=== PATIENT | female | born 1955 | race Two or more races ===

== ENCOUNTER 2018-12-06 17:20 | Emergency (ER) | payer OTHER ==
[~2018-12-06] VITALS: Ht 147.3 cm; Wt 76.7 kg
[2018-12-06 17:28] VITALS: Ht 147.3 cm; Wt 76.7 kg
[2018-12-06 20:59] LABS: BASOPHIL % 0.3 % (0-2)
[2018-12-06 21:07] LABS: CARBON DIOXIDE 28.3 mmol/L (21-32); CHLORIDE SERUM 105 mmol/L (98-107); CREATININE SERUM 0.8 mg/dL (0.6-1.0); GFR1 > 60 mL/min; GLUCOSE SERUM 112 mg/dL (74-106); PLATELET COUNT 207 x10^3mcL (130-400); POTASSIUM SERUM 3.8 mmol/L (3.5-5.1); SODIUM SERUM 142 mmol/L (136-145)
[2018-12-06 21:09] LABS: RED CELL DISTRIBUTION WIDTH 18.2 % (11.5-14.5)
[2018-12-06 21:10] LABS: ALBUMIN 3.5 g/dL (3.4-5.0); ALKALINE PHOSPHATASE 67 U/L (46-116); ALT/SGPT 22 U/L (14-59); AMYLASE 44 U/L (25-115); AST/SGOT 17 U/L (15-37); BILIRUBIN TOTAL 1.26 mg/dL (0.20-1.00); LIPASE 156 IU/L (73-393); TOTAL PROTEIN, SERUM 7.6 g/dL (6.4-8.2)
[2018-12-06 21:26] LABS: UA SPECIFIC GRAVITY <=1.005 (1.005-1.035); microscopic required? YES; urine erythrocyte 1+ (NEGATIVE)
[2018-12-06 21:59] VITALS: BP 136/78
== END 2018-12-06 21:59 | disposition home or self-care (01) ==
LOC: ED 17:20
PROVIDERS: Emergency Medicine
DX: N39.0 Urinary tract infection, site not specified (principal); K59.00 Constipation, unspecified; I10 Essential (primary) hypertension; Z85.038 Personal history of other malignant neoplasm of large intestine; Z98.890 Other specified postprocedural states
CPT/HCPCS: 36415